=== PATIENT | male | born 1965 | race Caucasian/White ===

== ENCOUNTER 2021-12-28 03:30 | Emergency (ER) | payer MEDICAID ==
[~2021-12-28] VITALS: Ht 175.3 cm; Wt 95.3 kg
[2021-12-28 03:30] VITALS: BP 155/92
--- NOTE | 2021-12-28 03:30 | NUR ---
CHUCK PICKETT, PREBOOK. TAKEN TO CHAIR C
--- NOTE | 2021-12-28 03:31 | NUR ---
Dr. Gutierres examining patient.
[2021-12-28 04:14] VITALS: BP 125/96
--- NOTE | 2021-12-28 04:14 | NUR ---
Patient D/C to custody.
== END 2021-12-28 04:14 ==
LOC: MED 03:30
DX: Z02.89 Encounter for other administrative examinations (principal); I10 Essential (primary) hypertension; Z79.899 Other long term (current) drug therapy
CPT/HCPCS: 99283

== ENCOUNTER 2022-04-11 16:49 | Emergency (ER) | payer MEDICAID ==
[~2022-04-11] VITALS: Ht 175.3 cm; Wt 97.5 kg
[2022-04-11 17:23] VITALS: BP 140/88
--- NOTE | 2022-04-11 18:59 | NUR ---
Swabs collected and handed to lab.
[2022-04-11] MEDS ORDERED: NAPR-1704 PO (19:13)
[2022-04-11] MEDS ORDERED: ERYT5OIN51 OP (19:13)
[2022-04-11] MEDS ORDERED: MUC600 PO (19:13)
[2022-04-11 19:30] VITALS: BP 128/78
--- NOTE | 2022-04-11 19:30 | NUR ---
Patient discharged with v/s stable. Written and verbal after care instructions given and explained. Patient alert, oriented and verbalized understanding of instructions. Ambulatory with steady gait. All questions addressed prior to discharge. ID band removed. Patient advised to follow up with PMD. Rx of mucinex, naorosyn, erythromycin given. Patient educated on indication of medication including possible reaction and side effects. Opportunity to ask questions provided and answered.
== END 2022-04-11 19:30 | disposition home or self-care (01) ==
LOC: MED 16:49
DX: B34.9 Viral infection, unspecified (principal); Z20.822 Contact with and (suspected) exposure to COVID-19; M54.2 Cervicalgia; H10.9 Unspecified conjunctivitis; I10 Essential (primary) hypertension; Z79.899 Other long term (current) drug therapy; Z98.890 Other specified postprocedural states
CPT/HCPCS: 71046; 99284